=== PATIENT | female | born 1950 | race Hispanic/Latino ===

== ENCOUNTER 2024-10-02 11:02 | Emergency (ER) | payer OTHER ==
[~2024-10-02] VITALS: Ht 149.9 cm; Wt 81.6 kg
--- NOTE | 2024-10-02 11:30 | ERN ---
General Stated Complaint: MECHANICAL FALL Time Seen by MD: 11:07 Time Seen by Midlevel: 11:07 Source: patient History of Present Illness Initial Comments The patient is a 74-year-old female presenting to the emergency department with right shoulder pain following a mechanical ground level fall. The patient states she was walking on loose gravel when she accidentally tripped and fell onto her right side. She denies any head injury or loss of consciousness. The fall was witnessed. The patient was able to get herself off the ground and ambulate. On arrival the only complaint she was having his pain to her right shoulder. Denies being on any blood thinners. Allergies: Coded Allergies: No Known Drug Allergies (Unverified Allergy, Unknown, 10/02/24) ROS Dictation CONSTITUTIONAL: Negative except for HPI HEAD/FACE: Negative except for HPI EENT: Negative except for HPI RESPIRATORY: Negative except for HPI GASTROINTESTINAL/ABDOMINAL: Negative except for HPI GENITOURINARY: Negative except for HPI MUSCULOSKELETAL: Negative except for HPI INTEGUMENTARY: Negative except for HPI NEUROLOGICAL/PSYCH: Negative except for HPI HEMATOLOGIC/LYMPHATIC: Negative except for HPI All Systems Negative, Except as noted above. 13 point review of systems assessed and all negative except for above. Physical Exam Physical Exam Dictation Vital Signs reviewed General Appearance: Alert, oriented x 3, no acute distress, well developed, nourished. Head and Face: non-traumatic. Eyes: PERRL, pink conjunctivas, eyelid no trauma, anterior chamber with arcus senilis. Ears: Pinnas intact and no signs of trauma or erythema ear canals clear and no discharge TM no erythema Nose: No discharge, no bleeding. Oropharynx: Mouth normal, tongue pink, pharynx clear,no erythema, tonsils no exudates, no abscesses noted, mucous membrane moist Neck: Supple, non-tender, no thyromegaly, no masses, no JVD, no bruits Breast:Deferred Chest:No tenderness, no crepitus, no paradoxical movement, no retractions Lungs:Clear, well-ventilated, symmetric, no rales, no wheezing, no rhonchi, no stridor, good breath sounds bilaterally Heart: Regular rate, regular rhythm, no murmur, no gallops Vascular: no peripheral edema, Abdomen: Soft, positive bowel sounds, nondistended, no guarding, nontender, no rebound, no masses no hepatomegaly, no splenomegaly, no Carlson's sign, no hernias. Rectal: Deferred Genital: Deferred Neurological: Normal speech, motor function intact, sensory function intact Musculoskeletal: Neck nontender, full range of motion, back nontender, full range of motion, Extremities: Lavl-rh-iungkfwy tenderness overlying the right anterior shoulder, range of motion is restricted secondary to pain, Skin: Color pink, dry, no turgor, no rash, no lacerations, no abrasions, no contusions. Lymphatic: Deferred MDM MDM: 74-year-old female presenting to the ER following a mechanical ground level fall. Patient reports falling onto her right side. She was reporting pain to her right shoulder. On physical examination there is some mild tenderness overlying the anterior aspect of the right shoulder. Range of motion is restricted secondary to pain. However, patient has sensation to her right upper extremity. She was neurovascularly intact. X-ray of the right shoulder reveals a nondisplaced humeral neck fracture. The patient was placed on a sling and will be discharged home with outpatient follow up with differential specialist. The patient was agreeable with this plan and all questions have been answered. Differential diagnosis: Fracture, contusion, dislocation There are no social concerns with this patient. Prescription drug management Prescriptions will include: Toradol Medical management and examination interpretation discussions were had by me with other qualified healthcare professionals as indicated for the patient's care. ED Course Orders Procedure Category Date Status Time Shoulder Comp 2+Vws Rt RAD 10/02/24 Resulted 11:26 Humerus 2+Vws Rt RAD 10/02/24 Resulted 11:26 Hydrocodone/Apap PHA 10/02/24 Complete 5/325 ([place] 5/325mg) 11:30 Current Medications Medications (Trade) Dose Ordered Sig/Shade Route PRN Reason Start Time Stop Time Status Last Admin Dose Admin Acetaminophen/ Hydrocodone Bitart (NORco 5/325MG) 1 tab ONCE ONCE PO 10/02/24 11:30 10/02/24 11:31 DC 10/02/24 12:14 Vital Signs Date Time Temp Pulse Resp B/P (MAP) Pulse Ox O2 Delivery O2 Flow Rate FiO2 10/02/24 12:05 98.4 65 18 157/72 98 Room Air 0 [facility] [address] [place] [id number] IMAGING REPORT Signed PATIENT: FELTON ROOT MR#: [id number] : 1950 SEX: F AGE: 74 LOCATION: [facility] ORDER 26 STATUS: REG ER REPORT#: [id number] SERVICE 25 REASON: fall ORDERING PHYSICIAN: BEV ABREU PROCEDURE: SHOL 2V RT - SHOULDER COMP 2+VWS RT Exam Type: HUMERUS 2+VWS RT, SHOULDER COMP 2+VWS RT Clinical Information: fall Comparison: None Findings: Nondisplaced fracture of the humeral neck. No other abnormalities. Glenohumeral relationship is preserved. IMPRESSION: Nondisplaced fracture of the humeral neck. DICTATED BY: DI WELSH MD DATE: 10/02/241218 ELECTRONICALLY SIGNED BY: DI WELSH MD DATE: 10/02/24 1223 DX & DISP Disposition: Discharge Departure Impression: Primary Impression: Fracture of neck of right humerus Condition: Stable Scripts Ketorolac Tromethamine (Ketorolac Tromethamine) 10 Mg Tablet 1 TAB PO BID for pain for 5 Days, #10 TAB 0 Refills Prov: BEV ABREU 10/02/24 Additional Instructions: Your shoulder x-ray reveals a humeral neck fracture. You were placed on a sling. You will need to see an differential specialist outpatient. I have given you a follow up with Dr. Mcneal. You may follow up Friday through Friday any time from 8-11 a.m.. Follow up with your primary care doctor. Referrals: BEV MCDANIEL MD (PCP) LAVON MCNEAL MD Time of Disposition: 12:30 I have reviewed the case, and I agree with, Diagnosis and Plan I performed the substantive portion of the visit. I have reviewed and personally made and approve the management plan that is documented in the note by myself or the KANIKA. I acknowledge for responsibility for the patient's management plan. BEV ABREU Oct 02, 2024 11:30
[2024-10-02] MEDS: HYDROcodone/APAP 5/325 1 TAB TABLET PO ONE (12:14)
--- NOTE | 2024-10-02 12:16 | NUR ---
SLING TO RT ARM APPLIED, PT ELIZABETH WELL.
--- NOTE | 2024-10-02 12:23 | HMCIMG ---
Exam Type: HUMERUS 2+VWS RT, SHOULDER COMP 2+VWS RT Clinical Information: fall Comparison: None Findings: Nondisplaced fracture of the humeral neck. No other abnormalities. Glenohumeral relationship is preserved. IMPRESSION: Nondisplaced fracture of the humeral neck.
[2024-10-02] MEDS ORDERED: KETO10TA2 PO (12:31)
[2024-10-02 13:05] VITALS: BP 130/70; PULSE 70; RESP 19; TEMP 98.3; O2SAT 96
[2024-10-02] MEDS: ketOROlac 30MG VIAL (30MG/ML) IM ONE (13:27)
== END 2024-10-02 13:33 | disposition home or self-care (01) ==
LOC: EDH 11:02
DX: S42.294A Other nondisplaced fracture of upper end of right humerus, initial encounter for closed fracture (principal); W01.0XXA Fall on same level from slipping, tripping and stumbling without subsequent striking against object, initial encounter; Y92.89 Other specified places as the place of occurrence of the external cause; Y93.01 Activity, walking, marching and hiking; Y99.8 Other external cause status
CPT/HCPCS: 99284; 73060; 73030; 96372; J1885